=== PATIENT | female | born 1965 | race Caucasian/White ===

== ENCOUNTER 2018-12-31 12:09 | Day surgery (SDC) | payer OTHER ==
[2018-12-26 11:07] VITALS: BMI 21.0
[~2018-12-31 12:09] MED LIST: SODIUM CHLORIDE 0.9% 1,000 ML IV SCH
[2018-12-31 12:49] VITALS: BP 116/70; RESP 20; TEMP 98.6
[2018-12-31] MEDS ORDERED: SODIUM CHLORIDE 0.9% 500 ML 500 ML IV ONE (13:18)
[2018-12-31 14:22] VITALS: PULSE 70
== END 2018-12-31 14:14 | disposition home or self-care (01) ==
LOC: CATHEP 12:09
PROVIDERS: ATTEND Internal Medicine Clinical Cardiac Electrophysiology
DX: R55 Syncope and collapse (principal)
CPT/HCPCS: 81025; 93660

== ENCOUNTER → 2019-02-19 | Outpatient (CLI) | payer OTHER ==
[2019-02-19 21:05] LABS: Total Protein,CSF 60 mg/dL (12-60)
[2019-02-19 21:28] LABS: Appearance,CSF Clear; CSF Tube Number 4; CSF Tube Volume 3; Nucleated Cells, CSF 0 u/L (0-5); Red Blood Cell,CSF 0 u/L (0-10)
[2019-02-21 14:18] LABS: IgG - CSF 2.3 mg/dL (0.0 - 3.4); IgG/Albumin Index (CSF) 0.49 (0.00 - 0.77); Immunoglobulin G 662 mg/dL (700 - 1600)
== END | disposition home or self-care (01) ==
LOC: LABWHC1 08:00
PROVIDERS: ATTEND Psychiatry & Neurology Pain Medicine
DX: R42 Dizziness and giddiness (principal); R20.8 Other disturbances of skin sensation
CPT/HCPCS: 36415; 82040; 82042; 82784; 83873; 83916; 84157; 87801; 89050

== ENCOUNTER → 2024-03-22 | Outpatient (CLI) | payer MEDICARE, OTHER ==
--- NOTE | 2024-03-22 10:16 | FL ---
EXAMINATION TYPE: FL barium swallow DATE OF EXAM: 03/22/2024 CLINICAL INDICATION: 58 year old female R1 3.10, unspecified dysphasia. Patient reports difficulty sw allowing food or drink for 2 years now. COMPARISON: None Total fluoroscopy time 2 minutes 2 seconds. Total images: 42. Total DAP: 50 mGycm2. FINDINGS: During assessment of the cervical esophagus, there is deep penetration with coating of the vocal fold s. This is a silent recurrence. There is anterior endplate spondylosis C5-C7 levels with anterior spurring impressing on the back wal l of the cervical esophagus without obstruction. The thoracic portion has a normal course and caliber. Intermittent moderate tertiary peristaltic waves are encountered. There is persistence of contrast wi thin the distal esophagus on upright and trace residual contrast remaining throughout the length of t he esophagus during prone/supine drinking. The mucosa is normal and no persistent filling defect is encountered. No hiatal hernia is present. No gastroesophageal reflux is identified. IMPRESSION: 1. Silent deep penetration with coating of the vocal folds. No aspiration. Unclear if this is an isol ated, inadvertent occurrence due to the unfamiliar consistency of the barium. Clinically correlate as to the need for further evaluation with speech pathology. 2. Anterior endplate spondylosis C5-C7 levels with anterior spurring impressing on to the back wall o f the cervical esophagus. No obstruction. 3. Intermittent tertiary peristaltic waves and blunted secondary stripping waves indicating mild to m oderate esophageal dysmotility. 4. No stricture or other discrete abnormality seen. [facility], , 03/22/2024 10:14 AM
== END | disposition home or self-care (01) ==
LOC: RADFLMAIN 08:35
PROVIDERS: ATTEND Surgery
CPT/HCPCS: 74220

== ENCOUNTER → 2024-05-16 | Outpatient (CLI) | payer MEDICARE, OTHER ==
--- NOTE | 2024-05-16 13:28 | CTL ---
EXAMINATION TYPE: CT Low Dose Lung DATE OF EXAM ORDERED: 05/16/2024 COMPARISON: None CLINICAL INDICATION: Female, 58 years old with history of Z12.2 Screening for malignant neoplasm Z87. 891 Personal HX; PHH, Personal hx nicotine dependence, former smoker quit 1 years ago, was 1 ppd x 30 years. Pt states she has low O2 at night, Lung cancer screening, History of Smoking/tobacco use. TECHNIQUE: Low dose computed tomography scan was performed through the chest at 1 mm thick sections a nd reconstructed images in multiple planes at 1 mm and [address] DLP: 44.[address] CTDI: 1.2 mGy Automated exposure control for dose reduction was used. CT DIAGNOSTIC QUALITY: Satisfactory FINDINGS: Nodules: No clinically significant pulmonary nodules. LUNGS: COPD: Severity: Mild Fibrosis: Severity: None Lymph nodes: None Other findings: None RIGHT PLEURAL SPACE: Effusion: None Calcification: None Thickening: None Pneumothorax: None LEFT PLEURAL SPACE: Effusion: None Calcification: None Thickening: None Pneumothorax: None HEART: Heart Size: Normal Coronary Calcification: Mild to moderate and most prominent along the LAD. Pericardial Effusion: None OTHER FINDINGS: Upper abdomen: None Bony thorax: None Supraclavicular region: None Other: None IMPRESSION: 1. No clinically significant pulmonary nodules. 2. Mild COPD changes. CT LUNG RAD AND CT CHEST RECOMMENDATION: Lung-Rad 1 Negative: Continue annual screening with LDCT in 12 months. S Modifier (other clinically significant findings): None [facility], , 05/16/2024 1:26 PM
== END | disposition home or self-care (01) ==
LOC: RADCTMAIN 11:19
PROVIDERS: ATTEND Family Medicine
DX: Z12.2 Encounter for screening for malignant neoplasm of respiratory organs (principal); J44.9 Chronic obstructive pulmonary disease, unspecified; Z87.891 Personal history of nicotine dependence
CPT/HCPCS: 71271

== ENCOUNTER → 2024-05-20 | Outpatient (CLI) | payer MEDICARE, OTHER ==
--- NOTE | 2024-05-20 12:36 | XR ---
EXAMINATION TYPE: XR lumbar spine 2 or 3V DATE OF EXAM: 05/20/2024 12:18 PM COMPARISON: None. CLINICAL INDICATION: Female, 58 years old with history of LOWER BCK PAIN M54.50; TECHNIQUE: XR lumbar spine 2 or 3V views are submitted. FINDINGS: Alignment is anatomic. The pedicles are intact. The transverse processes are intact. There is no s pondylolysis or spondylolisthesis. Vascular calcifications. Minimal grade 1 anterolisthesis L4-5. Mu ltilevel facet arthropathy. The degenerative disc disease at the thoracolumbar junction. IMPRESSION: 1. Multilevel mild hypertrophic change with minimal grade 1 anterolisthesis L4 on L5. Facet arthropat hy L4-5 and L5-S1 may be resulting in foraminal encroachment. Consider follow-up MRI. [facility], , 05/20/2024 12:34 PM
== END | disposition home or self-care (01) ==
LOC: RADXRMAIN 12:02
PROVIDERS: ATTEND Family Medicine
DX: M54.50 Low back pain, unspecified (principal); M43.16 Spondylolisthesis, lumbar region; M47.816 Spondylosis without myelopathy or radiculopathy, lumbar region; M47.817 Spondylosis without myelopathy or radiculopathy, lumbosacral region
CPT/HCPCS: 72100

== ENCOUNTER → 2024-07-20 | Outpatient (CLI) | payer MEDICARE, OTHER ==
--- NOTE | 2024-07-20 18:49 | MR ---
EXAMINATION TYPE: MR lumbar spine wo/w con DATE OF EXAM: 07/20/2024 11:49 AM COMPARISON: None. CLINICAL INDICATION: Female, 58 years old with history of M54.16 L RADICULOPATHY, , pain TECHNIQUE: TECHNIQUE: Multiplanar, multisequence images of the lumbar spine were acquired. IV Contrast: 4.5 mL Gadobutrol (None, if empty) FINDINGS: Cord terminates at the L1 level. Vertebral alignment appears normal. Disc heights are preserved. Disc hydration appears normal. Verteb ral body heights are preserved. Foramen are patent. No focal disc herniation or significant disc bulge is evident. No spinal canal stenosis is evident. There is some mild facet hypertrophy and ligamentum flavum laxity L3-4 with mild posterior lateral th ecal sac compression. Mild facet hypertrophy with thecal sac compression is present L2-3. IMPRESSION: No suspicious acute changes Pre and Post contrast MRI lumbar spine [facility], , 07/20/2024 6:46 PM
== END | disposition home or self-care (01) ==
LOC: RADMRIMAIN 10:25
PROVIDERS: ATTEND Family Medicine
DX: M54.16 Radiculopathy, lumbar region (principal)
CPT/HCPCS: 72158; A9585

== ENCOUNTER 2024-12-12 09:50 | Day surgery (SDC) | payer MEDICARE, OTHER ==
[2024-12-12 10:51] VITALS: TEMP 97.8
[2024-12-12] MEDS: LACTATED RINGERS 1,000 ML IV SCH (11:00)
[2024-12-12] MEDS: IV FLUID CONTINUATION 1,000 ML IV ONE ×2 (11:00→11:46)
[2024-12-12] MEDS ORDERED: PROPOFOL 10 MG/ML 20 ML VIAL IV ONE (11:49)
[2024-12-12] MEDS ORDERED: LIDOCAINE 1% INJ 10MG/ML (20 ML MDV) ONE (11:49)
--- NOTE | 2024-12-12 12:04 | P.PCN ---
Date of Procedure: 12/12/24 Preoperative Diagnosis: GERD Postoperative Diagnosis: Gastritis Duodenitis Procedure(s) Performed: EGD with biopsy Anesthesia: DERIK Surgeon: Ken Nguyen Pathology: other (Biopsies of antrum, duodenum, GE junction) Condition: stable Disposition: same day Indications for Procedure: 59-year-old female with complaint of epigastric pain, GERD and some dysphagia. Plan is for upper endoscopy for further evaluation. Risk on benefits and alternatives were provided to the patient. All questions answered prior to attending the endoscopy suite Operative Findings: Mild gastritis and duodenitis Description of Procedure: The patient was brought into the endoscopy suite and placed in left lateral decubitus position. Adequate sedation was achieved using conscious sedation. A bite-block was placed and an endoscope was placed in the oropharynx and advanced under endoscopic visualization. The endoscope was advanced through the esophagus into the stomach, through the gastric antrum and in through the pylorus. The third portion of duodenum was visualized. The endoscope was then slowly withdrawn. The first portion of duodenum was noted to have inflammatory changes. Biopsies were taken. The antrum was noted to have inflammatory changes. Biopsies were taken. The gastric body distended normally and the gastric folds appeared normal and flattened with insufflation. A retroflexed view of the fundus and GE junction revealed no significant hiatal hernia. GE junction appeared normal and biopsies were taken. The esophagus appeared endoscopically normal. Excess air was removed and the scope was withdrawn and the procedure was completed. The patient was sent to PACU in stable condition.
[2024-12-12 12:21] VITALS: BP 117/70; PULSE 67; RESP 18
== END 2024-12-12 13:02 | disposition home or self-care (01) ==
LOC: ORWHC2ENDO 09:50
PROVIDERS: ATTEND Surgery
DX: K29.50 Unspecified chronic gastritis without bleeding (principal); K29.80 Duodenitis without bleeding; K21.00 Gastro-esophageal reflux disease with esophagitis, without bleeding; J44.89 Other specified chronic obstructive pulmonary disease; E07.9 Disorder of thyroid, unspecified; F17.210 Nicotine dependence, cigarettes, uncomplicated; Z79.890 Hormone replacement therapy; Z79.51 Long term (current) use of inhaled steroids; Z79.899 Other long term (current) drug therapy
CPT/HCPCS: 88305; 43239; J2003; J2704